=== PATIENT | male | born 1950 | race Caucasian/White ===

== ENCOUNTER 2019-03-08 06:12 | Day surgery (SDC) | payer MEDICARE, OTHER ==
[2019-03-08] MEDS ORDERED: DIPRIVAN 200 MG/20 ML IV ONE (06:13)
[2019-03-08] MEDS ORDERED: Lactated Ringers 1,000 ML IV SCH (07:00)
[2019-03-08] MEDS ORDERED: Lactated Ringers 1,000 ML IV ONE (08:30)
[2019-03-08 09:06] VITALS: PULSE 70; O2SAT 95
[2019-03-08 09:08] VITALS: BP 126/68
--- NOTE | 2019-03-08 13:21 | OP ---
SURGERY DATE/TIME: 03/08/2019 0754 PREOPERATIVE DIAGNOSIS: Screening exam. POSTOPERATIVE DIAGNOSES: 1) Large rectosigmoid polyp. 2) Sigmoid diverticulosis. PROCEDURE: Colonoscopy with hot snare polypectomy. SURGEON: Dr. Trujillo. ANESTHESIA: MAC. Medications given by anesthesia department. HISTORY: The patient is a 69 white male presenting now for screening colonoscopy. He was appraised of the risks of the procedure including the risk of perforation, phlebitis, untoward reaction to medication, bleeding and missed lesions. The patient verbalized his understanding and desired to have the procedure performed. DESCRIPTION OF PROCEDURE: The patient was given the medications by the anesthesia department. He had continuous pulse oximetry, ECG monitoring, intermittent blood pressure monitoring and tidal CO2 monitoring during the examination. He was placed in the left lateral decubitus position. A digital rectal examination was performed and revealed normal anal sphincter tone, no masses and normal prostate. The flexible Olympus pediatric colonoscope was used to intubate the rectum. A view of the colon was developed sequentially to the cecum. Upon insertion and withdrawal, including a retroflex view in the rectum was noted moderate sigmoid diverticulosis and approximately 2 cm in diameter rectosigmoid polyp removed using hot polypectomy snare retrieved for pathologic evaluation. The scope was removed from the patient who tolerated the procedure well and was sent back to OP recovery in good condition. The prep was noted to be fair to good.
== END 2019-03-08 09:10 | disposition home or self-care (01) ==
LOC: SDC 06:12
PROVIDERS: ATTEND Family Medicine
DX: Z12.11 Encounter for screening for malignant neoplasm of colon (principal); D12.7 Benign neoplasm of rectosigmoid junction; K57.30 Diverticulosis of large intestine without perforation or abscess without bleeding
CPT/HCPCS: 88305; 99100; J2704

== ENCOUNTER 2019-07-01 18:40 | Emergency (ER) | payer MEDICARE, OTHER ==
--- NOTE | 2019-07-01 18:53 | ERPHSYRPT ---
- History of Present Illness Time Seen by Provider: 07/01/19 18:45 Source: patient Exam Limitations: no limitations Physician History: Right upper arm and shoulder pain after fall Occurred: just prior to arrival Method of Injury: fell (off a ladder approximately 7 feet in the air, hitting his right upper arm and shoulder against the ladder) Quality: constant Severity of Pain-Max: moderate Severity of Pain-Current: mild Extremities Pain Location: shoulder: right, arm: right Modifying Factors: Improves With: immobilization (helps the pain resolve with immobilization), movement (movement above his head exacerbates the pain) Associated Symptoms: No back pain, No chills, No chest discomfort, No chest pain , No dyspnea, No jaw pain, No nausea, No neck pain, No sweating, No short of breath, No vomiting Allergies/Adverse Reactions: No Known Drug Allergies Allergy (Verified 07/01/19 18:56) Home Medications: Aspirin 81 gm Chew [Baby Aspirin 81 mg Chew] 81 mg PO DAILY 03/01/19 [ History] Metoprolol Tartrate 25 mg PO HS 03/01/19 [History] Pravastatin Sodium [Pravachol] 40 mg PO DAILY 03/01/19 [History] Albuterol Sulfate [Albuterol Sulfate Hfa] 1 inh PO UD PRN 07/01/19 [History] Multivitamin/Iron/Folic Acid [Centrum Adults Tablet] 1 each PO DAILY 07/01/19 [ History] Hx Tetanus, Diphtheria Vaccination/Date Given: Yes (Up to date per patient's history within the past year) - Review of Systems Constitutional: No Fever, No Chills Eyes: No Symptoms, No Eye Pain, No Photophobia Ears, Nose, & Throat: No Symptoms, No Ear Pain, No Ear Discharge, No Nose Congestion, No Nose Discharge, No Epistaxis Respiratory: No Cough, No Dyspnea Cardiac: No Chest Pain, No Edema, No Syncope Abdominal/Gastrointestinal: No Abdominal Pain, No Nausea, No Vomiting, No Diarrhea Genitourinary Symptoms: No Flank Pain Musculoskeletal: No Back Pain, No Neck Pain Skin: No Rash Neurological: No Dizziness, No Focal Weakness, No Headache, No Paralysis, No Parasthesia, No Sensory Changes Psychological: No Symptoms Endocrine: No Symptoms Hematologic/Lymphatic: No Easy Bleeding, No Easy Bruising All Other Systems: Reviewed and Negative - Past Medical History Pertinent Past Medical History: Yes Neurological History: No Pertinent History ENT History: No Pertinent History Cardiac History: Other Respiratory History: Asthma Endocrine Medical History: No Pertinent History Musculoskeletal History: No Pertinent History GI Medical History: No Pertinent History History: No Pertinent History Psycho-Social History: Anxiety, Panic Disorder Male Reproductive Disorders: No Pertinent History Other Medical History: 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 skin CA removed - Social History Smoking Status: Former smoker Drug Use: none - Nursing Vital Signs Nursing Vital Signs: Initial Vital Signs Temperature 98.0 F 07/01/19 18:46 Pulse Rate 67 07/01/19 18:46 Blood Pressure 162/85 07/01/19 18:46 O2 Sat by Pulse Oximetry 94 L 07/01/19 18:46 Pain Scale Pain Intensity 1 - Physical Exam General Appearance: no apparent distress, alert Eyes, Ears, Nose, Throat Exam: normal ENT inspection, moist mucous membranes Neck Exam: normal inspection, non-tender, supple, full range of motion, No meningismus, No limited range of motion, No tenderness lateral, No tenderness midline Cardiovascular/Respiratory Exam: chest non-tender, normal breath sounds, regular rate/rhythm, no respiratory distress Abdominal Exam: non-tender, No guarding, No tenderness Back Exam: normal inspection, normal range of motion, No CVA tenderness, No vertebral tenderness, No muscle spasm, No point tenderness Shoulder Exam: normal inspection, bone tenderness, limited ROM, pain, soft tissue tenderness, No asymmetry, No deformity, No swelling Elbow/Forearm Exam: normal inspection, no evidence of injury, normal ROM, swelling (right olecranon bursa) Wrist Exam: normal inspection, non-tender, no evidence of injury, normal ROM, No bone tenderness Hand Exam: normal inspection, non-tender, no evidence of injury, normal ROM, No bone tenderness DTR - Upper Extremity Exam: bicep (R): 2+, bicep (L): 2+ Neuro/Tendon Exam: normal sensation, normal motor functions Mental Status Exam: alert, oriented x 3, cooperative Skin Exam: normal color, warm, dry, laceration (2.5cm superficial laceration of the right posterior elbow over the olecranon bursa) SpO2 Interpretation: normal O2 Delivery: Room Air Procedures - Laceration/Wound Repair Right Dorsal Elbow Wound Length (cm): 2.5 Wound's Depth, Shape: linear Wound Explored: clean Hibiclens Prep: Yes Volume Anesthetic (ccs): 0 Wound Debrided: none Wound Repaired With: Dermabond Sterile Dressing Applied?: Yes Splint Applied?: No Sling Applied?: No - Radiology Exams Right Shoulder X-ray Interpretation: Interpreted by me, Reviewed by me, Negative, No Fracture, Nml Alignment Right Elbow X-ray Interpretation: No Fracture, Nml Alignment, Other (positive bursa swelling ) Ordered Tests: Active Orders 24 hr Category Date Time Status Dressing Care ROUTINE Care 07/01/19 19:47 Active ELBOW (MINIMUM 3 VIEWS) Stat Exams 07/01/19 19:47 Taken SHOULDER Stat Exams 07/01/19 18:50 Taken - Progress Progress: improved Progress Note: 07/01/19 19:50 after informed consent obtained verbally, no success with any aspiration of the right bursitis at this visit performed under aseptic technique. Patient tolerated the procedure well, no complications 07/01/19 20:20 Patient has full range of motion to the right shoulder and right elbow and is neurovascularly intact distal to the injuries. Counseled pt/family regarding: diagnosis, need for follow-up, rad results - Departure Departure Disposition: Home Clinical Impression: Olecranon bursitis of right elbow, Elevated blood pressure reading without diagnosis of hypertension Right shoulder strain Qualifiers: Encounter type: initial encounter Qualified Code(s): S46.911A - Strain of unspecified muscle, fascia and tendon at shoulder and upper arm level, right arm , initial encounter Injury of right rotator cuff Qualifiers: Encounter type: initial encounter Qualified Code(s): S46.001A - Unspecified injury of muscle(s) and tendon(s) of the rotator cuff of right shoulder, initial encounter Laceration of right elbow without complication Qualifiers: Encounter type: initial encounter Qualified Code(s): S51.011A - Laceration without foreign body of right elbow, initial encounter Condition: Good Critical Care Time: No Referrals: MARIE LOO [Primary Care Provider] - Follow Up with PCP/3 days Instructions: Olecranon Bursitis (DC), Contusion (DC), Rotator Cuff Injury (DC) , Shoulder Pain (DC) Additional Instructions: return immediately back to the emergency, if any worse at any time, any new loss of function, new numbness or tingling, or any discoloration. Continue to use your shoulder and elbow and return immediately if you are unable to use them to the emergency department. Prescriptions: Etodolac 400 mg [Lodine 400 mg] 400 mg PO BID PRN PRN #20 tablet PRN Reason: Pain
[2019-07-01 20:37] VITALS: BP 150/84; PULSE 80; O2SAT 99
--- NOTE | 2019-07-01 21:56 | XRAY ---
Indication: Pain following fall. Comparison: None 3 views of the right elbow demonstrates posterior soft tissue swelling. No other bony, articular, or soft tissue abnormalities.
--- NOTE | 2019-07-01 21:58 | XRAY ---
Indication: Pain following fall. Comparison: None 3 views of the right shoulder demonstrates mild AC degenerative arthropathy and sternotomy wires. No other bony, articular, or soft tissue abnormalities.
== END 2019-07-01 20:51 | disposition home or self-care (01) ==
LOC: ED 18:40
DX: M70.21 Olecranon bursitis, right elbow (principal); R03.0 Elevated blood-pressure reading, without diagnosis of hypertension; S46.911A Strain of unspecified muscle, fascia and tendon at shoulder and upper arm level, right arm, initial encounter; S46.001A Unspecified injury of muscle(s) and tendon(s) of the rotator cuff of right shoulder, initial encounter; S51.011A Laceration without foreign body of right elbow, initial encounter; M79.621 Pain in right upper arm; M25.511 Pain in right shoulder; W11.XXXA Fall on and from ladder, initial encounter; Z79.899 Other long term (current) drug therapy
CPT/HCPCS: 12001; 73030; 73080; 99284